=== PATIENT | female | born 1990 | race Caucasian/White ===

== ENCOUNTER 2017-01-01 21:48 | Emergency (ER) | payer SELFPAY ==
[~2017-01-01 21:48] MED LIST: ACET325T33 PO; FAMO-96 PO
== END 2017-01-01 23:29 | disposition left against medical advice (07) ==
LOC: E/R 21:48
DX: Z53.21 Procedure and treatment not carried out due to patient leaving prior to being seen by health care provider (principal)

== ENCOUNTER 2017-04-23 20:22 | Outpatient (CLI) | END 2017-04-24 00:05 | disposition home or self-care (01) ==

== ENCOUNTER 2017-04-30 07:15 | Observation (INO) | END 2017-04-30 18:00 | disposition home or self-care (01) ==

== ENCOUNTER 2017-05-01 17:51 | Outpatient (CLI) | END 2017-05-01 19:28 | disposition home or self-care (01) ==

== ENCOUNTER 2017-05-18 03:05 | Inpatient (IN) | END 2017-05-20 14:30 | disposition home or self-care (01) | DRG 775 ==